=== PATIENT | female | born 1990 | race American Indian/Alaskan Native ===

== ENCOUNTER 2016-11-29 12:05 | Emergency (ER) | payer SELFPAY ==
[2016-11-29 12:55] VITALS: BP 106/51
--- NOTE | 2016-11-29 16:59 | Emergency Department Report ---
Addendum entered and electronically signed by ROMARIO LLANES NP 11/29/16 19:34: Blank Doc - Documentation Documentation: melanie now operational called attempted to call patient for return to ED for IOP check [phone] not connected , left message with primary next of kin [phone] for patient to return to ED for IOP check, Original Note: <ROMARIO LLANES - Last Filed: 11/29/16 19:31> ED Eye Problem HPI - General Chief complaint: Eye Problems Stated complaint: R EYE IRRITATION/PAIN Time Seen by Provider: 11/29/16 16:33 Source: patient Mode of arrival: Ambulatory Limitations: No Limitations - History of Present Illness Initial comments: eye pain x 7 months tx at [facility] for same in failed to follow up with opthal, failed to follow tx regimen, redness and itching continues there has been no trauma no dizziness no headache eye is matted in am yellow green mucus with occassional blurred vision chief complaint: eye redness Onset/Timin -: Sudden, month(s) Onset Description: sudden Location: right eye Place: home If Injury: none Eye Symptoms: burning, redness, pain, itching, discharge, blurry vision Severity: moderate Severity scale (0 -10): 3 If Pain, Quality: sharp Consistency: intermittent Associated Symptoms: denies: headache, neck pain, nausea/vomiting, cough, rhinorrhea, fever, shortness of breath Treatments Prior to Arrival: other (eye oint 7 months ago did not complete tx regimen ) - Related Data Previous Rx's Medication Instructions Recorded Last Taken Type Cetirizine HCl [ZyrTEC] 10 mg PO DAILY #30 capsule 11/29/16 Unknown Rx Ciprofloxacin HCl [Ciloxan OPTH 3.5 gm OD Q3H #1 tube 11/29/16 Unknown Rx OINT] Allergies Allergy/AdvReac Type Severity Reaction Status Date / Time No Known Allergies Allergy Unverified 11/29/16 12:47 ED Review of Systems ROS: Stated complaint: R EYE IRRITATION/PAIN Other details as noted in HPI Constitutional: denies: chills, fever Eyes: eye pain, eye discharge ENT: denies: ear pain, throat pain Respiratory: denies: cough, shortness of breath, wheezing Cardiovascular: denies: chest pain, palpitations Endocrine: no symptoms reported Gastrointestinal: denies: abdominal pain, nausea, diarrhea Genitourinary: denies: urgency, dysuria, discharge Musculoskeletal: denies: back pain, joint swelling, arthralgia Skin: denies: rash, lesions Neurological: denies: headache, weakness, paresthesias Psychiatric: denies: anxiety, depression Hematological/Lymphatic: denies: easy bleeding, easy bruising ED Past Medical Hx - Past Medical History Hx Asthma: Yes - Surgical History Additional Surgical History: - Social History Smoking Status: Never Smoker Substance Use Type: None - Medications Home Medications: Home Medications Medication Instructions Recorded Confirmed Last Taken Type Cetirizine HCl [ZyrTEC] 10 mg PO DAILY #30 capsule 11/29/16 Unknown Rx Ciprofloxacin HCl [Ciloxan OPTH 3.5 gm OD Q3H #1 tube 11/29/16 Unknown Rx OINT] ED Physical Exam - General Limitations: No Limitations General appearance: alert, in no apparent distress - Head Head exam: Present: atraumatic, normocephalic - Eye Eye exam: Present: PERRL, EOMI, conjunctival injection. Absent: nystagmus, periorbital swelling, periorbital tenderness - Expanded Eye Exam Expanded Eyelids: Normal Inspection: Right, Erythema: Right Pupils: Regular, Round: Bilateral, Reactive: Bilateral Sclera/Conjunctival: Injection: Right, Exudate: Right Anterior chamber: Normal Inspection: Bilateral Posterior chamber: Deferred: Bilateral Visual acuity (R) = 20/: 40 Visual acuity (L) = 20/: 20 IOP measured with: other (deferred ) - ENT ENT exam: Present: mucous membranes moist - Neck Neck exam: Present: normal inspection - Respiratory Respiratory exam: Present: normal lung sounds bilaterally. Absent: respiratory distress - Cardiovascular Cardiovascular Exam: Present: regular rate, normal rhythm. Absent: systolic murmur, diastolic murmur, rubs, gallop - GI/Abdominal GI/Abdominal exam: Present: soft, normal bowel sounds - Rectal Rectal exam: Present: deferred - Extremities Exam Extremities exam: Present: normal inspection - Back Exam Back exam: Present: normal inspection - Neurological Exam Neurological exam: Present: alert, oriented X3 - Psychiatric Psychiatric exam: Present: normal affect, normal mood - Skin Skin exam: Present: warm, dry, intact, normal color. 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 Critical care attestation.: If time is entered above; I have spent that time in minutes in the direct care of this critically ill patient, excluding procedure time. ED Disposition Disposition: DC-01 TO HOME OR SELFCARE Is pt being admited?: No Does the pt Need Aspirin: No Condition: Good Instructions: Conjunctivitis (ED) Additional Instructions: Follow up with ophthalmology as direcated jackelin Fuentes MD [phone] Prescriptions: Cetirizine HCl [ZyrTEC] 10 mg PO DAILY #30 capsule Ciprofloxacin HCl [Ciloxan OPTH OINT] 3.5 gm OD Q3H #1 tube Referrals: PRIMARY CAREMD [Primary Care Provider] - 3-5 Days Forms: Work/School Release Form(ED) Time of Disposition: 17:10 <JENNIFFER ELIZONDO P - Last Filed: 11/29/16 19:38> ED Medical Decision Making - Medical Decision Making The mid-level was advised to call the patient to return back to the ER for IOP measurement. Reported that a jose-pen that works is available in the ER and the mid-level agrees to request the patient return for IOP measurement. Unilateral eye pain must receive evaluation for acute angle glaucoma. Mid- level agrees to continue to attempt to contact patient to return to the ER.
== END 2016-11-29 17:35 | disposition home or self-care (01) ==
LOC: ED 12:05
DX: J45.909 Unspecified asthma, uncomplicated (principal); H10.89 Other conjunctivitis; Z98.890 Other specified postprocedural states
CPT/HCPCS: 99282

== ENCOUNTER 2016-11-30 22:07 | Emergency (ER) | payer SELFPAY | END 2016-11-30 22:30 | disposition left against medical advice (07) | LOC: ED 22:07 | DX: H57.11 Ocular pain, right eye (principal); Z53.21 Procedure and treatment not carried out due to patient leaving prior to being seen by health care provider ==

== ENCOUNTER 2016-12-07 14:14 | Emergency (ER) | payer SELFPAY ==
[2016-12-07 14:27] VITALS: BP 115/70
[2016-12-07] MEDS ORDERED: FUL-GLO OP ONE (15:07)
[2016-12-07] MEDS ORDERED: TETRACAINE 0.5% OU STA (15:07)
--- NOTE | 2016-12-07 15:14 | Emergency Department Report ---
ED Eye Problem HPI - General Chief complaint: Eye Problems Stated complaint: RT EYE PAIN Time Seen by Provider: 12/07/16 14:47 Source: patient Mode of arrival: Ambulatory Limitations: No Limitations - History of Present Illness Initial comments: PT c/o R eye problem. PT states she was seen at [facility] at the beginning of year and dx with stye. PT states she was given eye ointment and used it for 2 weeks but the stye did not fully resolve. PT states that she was told if the stye did not clear up, she may need surgery. PT states two weeks ago her R eye started to swell, have redness and drainage. PT states she was seen last week and dx with pink eye. PT states she did not fill the eye ointment because it cost $240 PT states she was called back to the ED to have her eye pressure checked. PT states she came once before but left before being seen. MD chief complaint: eye pain -: Gradual, week(s) (2) Onset Description: gradual Location: right eye If Injury: none Eye Symptoms: redness, pain, discharge, decreased vision Severity scale (0 -10): 9 If Pain, Quality: aching, throbbing Consistency: constant Associated Symptoms: headache. denies: nausea/vomiting, fever Treatments Prior to Arrival: none - Related Data Previous Rx's Medication Instructions Recorded Last Taken Type Cetirizine HCl [ZyrTEC] 10 mg PO DAILY #30 capsule 11/29/16 Unknown Rx Ciprofloxacin HCl [Ciloxan OPTH 3.5 gm OD Q3H #1 tube 11/29/16 Unknown Rx OINT] Acetaminophen/Codeine [Tylenol #3] 1 tab PO Q6H PRN #12 tab 12/07/16 Unknown Rx Erythromycin [Erythromycin Ophth 1 cm OD QID 7 Days 12/07/16 Unknown Rx Oint] Allergies Allergy/AdvReac Type Severity Reaction Status Date / Time No Known Allergies Allergy Unverified 11/29/16 12:47 ED Review of Systems ROS: Stated complaint: RT EYE PAIN Other details as noted in HPI Comment: All other systems reviewed and negative Constitutional: denies: fever Eyes: as per HPI, eye pain Gastrointestinal: denies: nausea, vomiting Skin: denies: rash, change in color Neurological: headache ED Past Medical Hx - Past Medical History Hx Asthma: Yes - Surgical History Past Surgical History?: Yes Additional Surgical History: - Social History Smoking Status: Never Smoker Substance Use Type: None - Medications Home Medications: Home Medications Medication Instructions Recorded Confirmed Last Taken Type Cetirizine HCl [ZyrTEC] 10 mg PO DAILY #30 capsule 11/29/16 Unknown Rx Ciprofloxacin HCl [Ciloxan OPTH 3.5 gm OD Q3H #1 tube 11/29/16 Unknown Rx OINT] Acetaminophen/Codeine [Tylenol #3] 1 tab PO Q6H PRN #12 tab 12/07/16 Unknown Rx Erythromycin [Erythromycin Ophth 1 cm OD QID 7 Days 12/07/16 Unknown Rx Oint] ED Physical Exam - General Limitations: No Limitations General appearance: alert, in no apparent distress - Head Head exam: Present: atraumatic, normocephalic, normal inspection - Eye Eye exam: Present: PERRL, EOMI. Absent: conjunctival injection, periorbital swelling, periorbital tenderness - Expanded Eye Exam Expanded Eyelids: Stye: Right (two styes to upper eye lid ) Pupils: Regular, Round: Bilateral Visual acuity (R) = 20/: 200 Visual acuity (L) = 20/: 50 With correction: No IOP (R) in mmH IOP (L) in mmH IOP measured with: Tonopen - ENT ENT exam: Present: normal orophraynx, mucous membranes moist, normal external ear exam - Expanded ENT Exam Expanded TM/Canal exam: Cerumen Impaction: Left TM Mouth exam: Absent: drooling, trismus - Neck Neck exam: Present: normal inspection, full ROM. Absent: tenderness - Respiratory Respiratory exam: Present: normal lung sounds bilaterally. Absent: respiratory distress - Cardiovascular Cardiovascular Exam: Present: regular rate, normal rhythm - Extremities Exam Extremities exam: Present: normal inspection, full ROM - Back Exam Back exam: Present: normal inspection, full ROM - Neurological Exam Neurological exam: Present: alert, oriented X3 - Psychiatric Psychiatric exam: Present: normal affect, normal mood - Skin Skin exam: Present: warm, dry ED Course Vital Signs 12/07/16 12/07/16 14:23 16:39 Temperature 98.0 F Pulse Rate 75 Respiratory 16 18 Rate Blood Pressure 115/70 O2 Sat by Pulse 100 Oximetry - Reevaluation(s) Reevaluation #1: 12/07/16 16:32 PT states she is supposed to wear glasses but she does not. PT aware of eye pressure results. PT aware with chronic stye, she will need to follow up with an eye doctor. PT has no questions at this time. - Pulse Oximetry Interpretation Digit-Finger Initial Pulse Oximetry Readin Actions Taken: none ED Medical Decision Making - Differential Diagnosis stye, conjunctivitis Critical Care Time: No Critical care attestation.: If time is entered above; I have spent that time in minutes in the direct care of this critically ill patient, excluding procedure time. ED Disposition Clinical Impression: Left ear impacted cerumen Hordeolum of right upper eyelid Qualifiers: Hordeolum type: unspecified type Qualified Code(s): H00.011 - Hordeolum externum right upper eyelid Disposition: - TO HOME OR SELFCARE Is pt being admited?: No Does the pt Need Aspirin: No Condition: Stable Instructions: Cerumen Impaction (ED), Stye (ED) Additional Instructions: Warm compresses at least 4 times a day good hand washing Follow up with an eye doctor early next week. No driving or alcohol after taking Tylenol #3 do no use qtips to clean your ears Prescriptions: Acetaminophen/Codeine [Tylenol #3] 1 tab PO Q6H PRN #12 tab PRN Reason: Pain , Severe (7-10) Erythromycin [Erythromycin Ophth Oint] 1 cm OD QID 7 Days Referrals: PRIMARY MD PAULA [Primary Care Provider] - 3-5 Days CAYDEN MARIA MD [Staff Physician] - 3-5 Days HARSHA DE LA FUENTE MD [Staff Physician] - 3-5 Days Forms: Accompanied Note Time of Disposition: 16:35
[2016-12-07] MEDS ORDERED: NORCO 5/325 PO ONE (16:35)
== END 2016-12-07 16:44 | disposition home or self-care (01) ==
LOC: ED 14:14
DX: H00.011 Hordeolum externum right upper eyelid (principal); H61.22 Impacted cerumen, left ear; J45.909 Unspecified asthma, uncomplicated
CPT/HCPCS: 99283